=== PATIENT | female | born 1980 | race Caucasian/White ===

== ENCOUNTER 2019-02-02 17:48 | Emergency (ER) | payer OTHER, MEDICAID ==
[2019-02-02 17:58] VITALS: BP 137/82; PULSE 62; RESP 18; TEMP 98
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
== END 2019-02-02 19:48 | disposition home or self-care (01) ==
LOC: EC 17:48
DX: S93.401A Sprain of unspecified ligament of right ankle, initial encounter (principal); S99.921A Unspecified injury of right foot, initial encounter; Z88.2 Allergy status to sulfonamides; V43.52XA Car driver injured in collision with other type car in traffic accident, initial encounter; Y92.410 Unspecified street and highway as the place of occurrence of the external cause
CPT/HCPCS: 99284

== ENCOUNTER → 2020-01-12 | Outpatient (CLI) | payer MEDICAID ==
--- NOTE | 2020-01-13 11:43 | MM ---
Reason for exam: screening (asymptomatic). Last mammogram was performed 8 years and 8 months ago. History: Family history of breast cancer in mother at age 61. Physical Findings: A clinical breast exam by your physician is recommended on an annual basis and results should be correlated with mammographic findings. MG Screening Mammo w CAD Bilateral CC and MLO view(s) were taken. Prior study comparison: May 01, 2011, bilateral digital screening mammo w/CAD. The breast tissue is heterogeneously dense. This may lower the sensitivity of mammography. Finding: There is an intermediate concern, suspicious 7 mm equal density (isodense), circumscribed oval mass located 10 cm from the nipple in the left breast on MLO view. New finding since May 01, 2011. ASSESSMENT: Incomplete: need additional imaging evaluation, BI-RAD 0 RECOMMENDATION: Special view mammogram of the left breast. If lesion persists on supplemental views, image directed ultrasound is recommended. [facility] will attempt to contact patient to return for supplemental views and ultrasound if indicated.
== END | disposition home or self-care (01) ==
LOC: RADMAMWWP 12:29
PROVIDERS: ATTEND Family Medicine
DX: Z12.31 Encounter for screening mammogram for malignant neoplasm of breast (principal)
CPT/HCPCS: 77067

== ENCOUNTER → 2020-01-17 | Outpatient (CLI) | payer MEDICAID ==
--- NOTE | 2020-01-18 08:09 | MM ---
Reason for exam: additional evaluation requested from abnormal screening. Last mammogram was performed less than 1 month ago. History: Family history of breast cancer in mother at age 61. Physical Findings: Nurse did not find any significant physical abnormalities on exam. MG 3D Work Up W/Cad LT LM and spot compression MLO view(s) were taken of the left breast. Prior study comparison: January 12, 2020, bilateral MG screening mammo w CAD. May 01, 2011, bilateral digital screening mammo w/CAD. The breast tissue is heterogeneously dense. This may lower the sensitivity of mammography. Finding: There is a persistent 7 mm equal density (isodense), circumscribed oval mass located 10 cm from the nipple in the 2-4 o'clock upper outer quadrant, posterior position of the left breast. These results were verbally communicated with the patient and result sheet given to the patient on 01/17/20. ASSESSMENT: Incomplete: need additional imaging evaluation, BI-RAD 0 RECOMMENDATION: Ultrasound of the left breast.
--- NOTE | 2020-01-18 08:11 | USB ---
Reason for exam: additional evaluation requested from abnormal screening. History: Family history of breast cancer in mother at age 61. US Breast Workup Limited LT Left limited breast ultrasound including focal area of concern, retroareolar and axilla demonstrates a 7 x 5 x 8mm oval, cystic lesion at 1 o'clock, a 5 x 3 x 5mm cystic lesion at 4 o'clock, a 6 x 3 x 7mm oval, cystic lesion at 4 o'clock and a 7 x 4 x 7mm oval, hypoechoic lesion at 3 o'clock for which a biopsy is recommended. These results were verbally communicated with the patient and result sheet given to the patient on 01/17/20. ASSESSMENT: Suspicious, BI-RAD 4 RECOMMENDATION: Ultrasound core biopsy of the left breast. Called Dr. Zoila Wadsworth's office with mammographic findings and has scheduled an appointment for the patient for 02/02/20 at 8:[address] Wadsworth. Biopsy scheduled for 01/19/20 at 1:00. PRELIMINARY REPORT CALLED AND FAXED TO DR. WADSWORTH ON 01/18/20.
== END | disposition home or self-care (01) ==
LOC: RADMAMWWP 14:32
PROVIDERS: ATTEND Family Medicine
DX: R92.8 Other abnormal and inconclusive findings on diagnostic imaging of breast (principal)
CPT/HCPCS: 77061; 77065

== ENCOUNTER → 2020-01-19 | Day surgery (SDC) | payer MEDICAID ==
[2020-01-19 14:26] VITALS: BP 119/75; PULSE 71; RESP 16; TEMP 98.1
--- NOTE | 2020-01-19 14:50 | USB ---
EXAMINATION TYPE: US biopsy breast VAD LT, MG diagnostic mammo LT wo CAD DATE OF EXAM: 01/19/2020 CLINICAL HISTORY: R92.8 abnormal mammogram. TECHNIQUE: Ultrasound guided core biopsy of left breast. COMPARISON: NONE FINDINGS: The procedure of ultrasound guided core biopsy was explained to the patient. Benefits, alternatives, and risks were discussed. An informed consent was then obtained. The patient was placed in supine positioning for imaging and for the procedure. The overlying skin was prepped and draped in usual sterile fashion. Lidocaine was used as anesthetic into the skin and subcutaneous tissue up to area of concern in the left breast. A carlita was made with surgical scalpel. Under ultrasound guidance, a 12-gauge vacuum assisted biopsy gun device was used to obtain 4 core samples. Following this, a biopsy clip was left in lesion. The patient tolerated the procedure well without any immediate complication. The patient was kept in the radiology department for short stay after the procedure and then discharged home in stable condition. IMPRESSION: Successful, uncomplicated ultrasound guided core biopsy of area of concern in the left breast, full pathology results to follow. Pathology Results: Benign LEFT BREAST, ULTRASOUND GUIDED CORE BIOPSY: Fibrocystic changes including fibroadenomatoid hyperplasia with mild usual type ductal hyperplasia, cysts and apocrine metaplasia. Recommendation Follow up mammogram of the left breast in 6 months. (for the central superior and posterior asymmetric density seen on the left MLO view screening mammogram) JCARLOS
== END ==
LOC: RADUSWWP 11:32
PROVIDERS: ATTEND Surgery
DX: N60.12 Diffuse cystic mastopathy of left breast (principal); N62 Hypertrophy of breast; N60.82 Other benign mammary dysplasias of left breast; Z88.2 Allergy status to sulfonamides; Z80.9 Family history of malignant neoplasm, unspecified
CPT/HCPCS: 88305; 77065; 19083; A4648; J2001

== ENCOUNTER → 2020-07-23 | Outpatient (CLI) | payer MEDICAID ==
--- NOTE | 2020-07-23 13:13 | MM ---
Reason for exam: follow-up at short interval from prior study. Last mammogram was performed 6 months ago. History: Family history of breast cancer in mother at age 61. Benign US biopsy breast VAD LT of the left breast, January 19, 2020. Physical Findings: Nurse did not find any significant physical abnormalities on exam. MG Diagnostic Mammo LT w CAD CC and MLO view(s) were taken of the left breast. Prior study comparison: January 19, 2020, left breast MG diagnostic mammo LT wo CAD. January 17, 2020, left breast MG 3d work up w/cad LT. The breast tissue is heterogeneously dense. This may lower the sensitivity of mammography. Previous mammotome biopsy in the left breast. There is no discrete abnormality. These results were verbally communicated with the patient and result sheet given to the patient on 07/23/20. ASSESSMENT: Benign, BI-RAD 2 RECOMMENDATION: Return to routine screening mammogram schedule for both breasts.
--- NOTE | 2020-07-23 13:15 | USB ---
Reason for exam: follow-up at short interval from prior study. History: Family history of breast cancer in mother at age 61. Benign US biopsy breast VAD LT of the left breast, January 19, 2020. US Breast Limited LT Left limited breast ultrasound including focal area of concern, retroareolar and axilla demonstrates a 1.0 x 0.6 x 0.8cm cystic lesion at 1 o'clock, simple, benign appearing, a 0.7 x 0.4 x 0.7cm cystic cluster at 1 o'clock, probably benign and a 0.6 x 0.4 x 0.6cm hypoechoic lesion at 3 o'clock, clip seen, prior benign biopsy. These results were verbally communicated with the patient and result sheet given to the patient on 07/23/20. ASSESSMENT: Probably benign, BI-RAD 3 RECOMMENDATION: Ultrasound of the left breast in 6 months.
== END | disposition home or self-care (01) ==
LOC: RADMAMWWP 08:16
PROVIDERS: ATTEND Surgery
DX: R92.8 Other abnormal and inconclusive findings on diagnostic imaging of breast (principal); Z80.3 Family history of malignant neoplasm of breast
CPT/HCPCS: 77065